=== PATIENT | female | born 1955 | race American Indian/Alaskan Native ===

== ENCOUNTER 2017-03-07 10:52 | Day surgery (SDC) | payer OTHER ==
[~2017-03-07 10:52] MED LIST: XYLOCAINE MPF 2% ONE
[2017-03-07] MEDS ORDERED: NACL 0.9% 1000 ML 1,000 ML IV SCH (12:00)
--- NOTE | 2017-03-07 13:09 | Anesthesia Day of Surgery ---
Anesthesia Day of Surgery - Day of Surgery Patient Examined: Yes Patient H&P Reviewed: Yes Patient is NPO: Yes
--- NOTE | 2017-03-07 13:09 | Anesthesia Consultation ---
Anesthesia Consult and Med Hx Date of service: 03/07/17 - Airway Anesthetic Teeth Evaluation: Good ROM Head & Neck: Inadequate Mental/Hyoid Distance: Inadequate Mallampati Class: Class IV Intubation Access Assessment: Difficult - Pulmonary Exam CTA: Yes - Cardiac Exam Cardiac Exam: RRR - Pre-Operative Health Status ASA Pre-Surgery Classification: ASA2 Proposed Anesthetic Plan: MAC - Pulmonary Hx Smoking: No Hx Sleep Apnea: No (high risk) - Cardiovascular System Hx Hypertension: No - Central Nervous System Hx Neuromuscular Disorder: No - Gastrointestinal Hx Gastroesophageal Reflux Disease: No - Endocrine Hx Renal Disease: No Hx Insulin Dependent Diabetes: No - Hematic Hx Anemia: No Hx Sickle Cell Disease: No - Other Systems Hx Alcohol Use: No Hx Substance Use: No Hx Cancer: No Hx Obesity: No
[2017-03-07] MEDS ORDERED: DIPRIVAN 10 MG/ML IV ONE ×6 (13:11→14:21)
[2017-03-07] MEDS ORDERED: WATER FOR IRRIG STERILE IR ONE (13:24)
[2017-03-07] MEDS ORDERED: WATER FOR IRRIG STERILE ONE (13:25)
--- NOTE | 2017-03-07 14:28 | Operative Report ---
Operative Report Operative Report: Date of procedure: 03/07/2017 Procedure: Colonoscopy with endoscopic mucosal resection of cecal polyp, submucosal injection, Hot biopsy polypectomy with avulsion of mid ascending colon polyp with Hemoclip application, Submucosal injection with snare polypectomy of a transverse colon polyp with Hemoclip application, Snare polypectomy of a pedunculated splenic flexure polyp, Hot biopsy polypectomy of a descending colon polyp, Hot biopsy polypectomy with Ablation of a flat rectal polyp. Attending physician: Troy Crane MD Plumbing Manager: Troy Crane MD Indication: Patient is a 61-year-old female who presents for screening colonoscopy. Patient has underlying personal history of colon polyps and a strong family history of colorectal cancer. This colonoscopy serves to evaluate patient so that treatment may be directed based on the findings. Consent: Informed consent was obtained after advising the patient and family regarding nature of this procedure, its indications, potential benefits as well as possible complications including but not limited to bleeding perforation and adverse reaction to medication, infection as well as other cardiopulmonary complications. An informed written and verbal consent was then obtained after due opportunity was provided for questions and answers. Monitoring: Patient was monitored continuously with pulse oximetry and electrocardiographic recordings as well as blood pressure recordings. Vital signs remained stable throughout this procedure with no untoward events. Preoperative assessment: Patient was assessed immediately prior to this procedure for capacity to tolerate monitored anesthesia care and moderate sedation as well as general anesthesia. Patient's ASA classification is 2, Mallampati class is 2, Hyomental distance is 3. Instrument: [employer] video colonoscope Medications: Propofol given intravenously in divided doses. For details please refer to anesthesia records. Description of procedure: Patient was placed in the left lateral decubitus position after achieving sedation, a digital rectal examination was performed following which the colonoscope was introduced into the anal verge and advanced to the cecum which was identified by the cecal valve, the appendiceal orifice, as well as by the cecal strap and direct transillumination. The colonoscope was subsequently withdrawn with careful inspection of all mucosal surfaces. Patient tolerated this procedure well and was subsequently taken to the recovery room. The following findings were noted. Findings: The preparation was fair. Patient had scattered diverticula in the sigmoid and descending colon and also in the ascending colon. There was a broad -based flat polyp in the cecum which was elevated with submucosal injection of saline until it was well elevated. Endoscopic mucosal resection was then performed using the snare electrocautery. The defect created, was then closed using 2 hemoclips. The submucosal defect created, was then closed with 2 hemoclips. Patient had a flat broad-based polyp in the ascending colon. This was elevated with submucosal injection of saline and was removed by hot biopsy polypectomy using an avulsion technique. There was a transverse colon polyp which again was broad-based measuring approximately 1-1.5 cm. It was flat. It was a elevated with submucosal injection of saline and removed by snare electrocautery. The defect was then closed with Hemoclip. There was a pedunculated 1.5 cm polyp at the splenic flexure. This was removed by snare electrocautery. There was a descending colon sessile polyp which measured approximately 4-6 mm. This was removed biopsy polypectomy. There was a flat diminutive polyp at the rectum seen on the retroflex view at the anal verge. This was removed by hot biopsy polypectomy and the base ablated. Patient also had internal hemorrhoids noted on the retroflex examination at the anal verge. Impression: Cecal polyp, status post endoscopic mucosal resection. Ascending colon polyp status post hot biopsy polypectomy using the avulsion technique. Transverse colon polyp status post submucosal injection of saline and snare polypectomy. Splenic flexure polyp status post snare polypectomy. Descending colon polyp status post hot biopsy polypectomy. Rectal polyp status post hot biopsy polypectomy and ablation. Diverticula disease of the colon. Internal hemorrhoids. Plan: Follow pathology report. High-fiber diet. Repeat colonoscopy in 1 year.
--- NOTE | 2017-03-07 14:29 | Discharge Summary ---
Short Stay Discharge Plan Activity: no restrictions, advance as tolerated Weight Bearing Status: Weight Bear as Tolerated Diet: regular
[2017-03-07 15:01] VITALS: BP 157/84
--- NOTE | 2017-03-07 15:31 | Post Anesthesia Evaluation ---
- Post Anesthesia Evaluation Patient Participated: Yes Airway Patent: Yes Stable Respiratory Function: Yes Nausea/Vomiting: No Temp > 96.8F: Yes Pain Manageable: Yes Adequeate Hydration: Yes Anesthesia Complications: No Block Receding Appropriately: Not Applicable Patient on Ventilator: No
== END 2017-03-07 10:53 | disposition home or self-care (01) ==
LOC: GIO 10:52
PROVIDERS: ATTEND Internal Medicine Gastroenterology
DX: D12.2 Benign neoplasm of ascending colon (principal); D12.4 Benign neoplasm of descending colon; D12.3 Benign neoplasm of transverse colon; D12.0 Benign neoplasm of cecum; K63.5 Polyp of colon; K64.8 Other hemorrhoids; Z88.2 Allergy status to sulfonamides; Z80.0 Family history of malignant neoplasm of digestive organs
CPT/HCPCS: 45380; 45384; 45385; 45390; 88305; J2704; J7030

== ENCOUNTER 2020-01-25 08:48 | Outpatient (CLI) | payer OTHER ==
--- NOTE | 2020-01-25 09:31 | XRay Report ---
LEFT ELBOW 3 VIEWS INDICATION: [id number] UNSPEC FRAC OF SHAFT OF ULNA. COMPARISON: None. IMPRESSION: There is severe diffuse soft tissue swelling. A comminuted displaced fracture is identi fied in the proximal ulna just distal to the elbow joint. An anterior butterfly fragment measures 2.2 cm. There is up to 1.2 cm displacement at the fracture site. The radial head appears intact although it is dislocated posteriorly. The distal humerus is grossly intact. Joint hemarthrosis is noted. Signer Name: Julio Kinney Jr, MD Signed: 01/25/2020 9:27 AM Workstation Name: [id number]
== END 2020-01-25 08:49 | disposition home or self-care (01) ==
LOC: XRAY 08:48
PROVIDERS: ATTEND Orthopaedic Surgery
DX: S52.002A Unspecified fracture of upper end of left ulna, initial encounter for closed fracture (principal); S52.202A Unspecified fracture of shaft of left ulna, initial encounter for closed fracture; M79.89 Other specified soft tissue disorders; M25.022 Hemarthrosis, left elbow; X58.XXXA Exposure to other specified factors, initial encounter; Y93.89 Activity, other specified; Y92.89 Other specified places as the place of occurrence of the external cause; Y99.8 Other external cause status